=== PATIENT | male | born 1960 | race African-American/Black ===

== ENCOUNTER 2020-02-19 09:55 | Inpatient (IN) | payer OTHER ==
--- NOTE | 2020-02-19 11:31 | BHS.RME ---
Substance Use & Tx History - Substance Use History Alcohol Substance amount: 2- 220z cans Frequency of use: Daily Substance route: Oral Date of Last Use: 02/18/20 - Last Treatment Date of last treatment: 06/16/15 Treatment type: Substance Use Disorder ([facility]LINDA) Where was last treatment: Detox Physical/Psych/Mental Status - Behavior General Behavior: Increased activity (restlessness, agitation) Eye Contact: Normal Other Behaviors: Mannerisms - Cooperativeness Cooperativeness: Cooperative - Thinking Thought Processes: Logical Thought content: Future oriented - Physical Health Problems Is patient presently having any pain?: No Does patient presently have any injuries (include location): No Does patient currently have a fever: No CIWA Nausea/Vomitin Muscle Tremors: 2 Anxiety: 2 Agitation: 2 Paroxysmal Sweats: 2 Orientation: 0-Oriented Tacttile Disturbances: 0-None Auditory Disturbances: 1-Very Mild Visual Disturbances: 1-Very Mild Sensitivity Headache: 2-Mild CIWA-Ar Total Score: 14
--- NOTE | 2020-02-19 12:00 | HP ---
CIWA Score Nausea/Vomitin Muscle Tremors: 2 Anxiety: 2 Agitation: 2 Paroxysmal Sweats: 2 Orientation: 0-Oriented Tacttile Disturbances: 0-None Auditory Disturbances: 1-Very Mild Visual Disturbances: 1-Very Mild Sensitivity Headache: 2-Mild CIWA-Ar Total Score: 14 - Admission Criteria [facility]ASAS Guidelines: Admission for Medically Managed Detox: Requires at least one of the followin. CIWA greater than 12 2. Seizures within the past 24 hours 3. Delirium tremens within the past 24 hours 4. Hallucinations within the past 24 hours 5. Acute intervention needed for co occurring medical disorder 6. Acute intervention needed for co occurring psychiatric disorder 7. Severe withdrawal that cannot be handled at a lower level of care (continued vomiting, continued diarrhea, abnormal vital signs) requiring intravenous medication and/or fluids 8. Admitting History and Physical - Smoking History Smoking history: Never smoked Have you smoked in the past 12 months: No - Alcohol/Substance Use Hx Alcohol Use: Yes Admission ROS S - HPI Chief Complaint: Withdrawal sx Allergies/Adverse Reactions: Allergies Allergy/AdvReac Type Severity Reaction Status Date / Time No Known Allergies Allergy Verified 02/19/20 12:02 History of Present Illness: Patient is a 59 years old man who presents from [facility] where he was observed for a day for intoxication and seizure, patient reports he was given librium while he was under observation. He denies blackouts, patient is homeless Exam Limitations: No Limitations - Ebola screening Have you traveled outside of the country in the last 21 days: No Have you had contact with anyone from an Ebola affected area: No Have you been sick,other than usual withdrawal symptoms: No Do you have a fever: No - Review of Systems Constitutional: Changes in sleep EENT: reports: No Symptoms Reported Respiratory: reports: Productive cough Cardiac: reports: No Symptoms Reported GI: reports: Nausea, Poor Fluid Intake, Abdominal cramping : reports: No Symptoms Reported Musculoskeletal: reports: Muscle Pain, Muscle Weakness Integumentary: reports: Sweating Neuro: reports: Numbness, Seizure, Tremors Endocrine: reports: No Symptoms Reported Hematology: reports: No Symptoms Reported Psychiatric: reports: Anxious, Depressed Other Systems: Reviewed and Negative Patient History - Patient Medical History Hx Anemia: No Hx Asthma: No Hx Chronic Obstructive Pulmonary Disease (COPD): No Hx Cancer: No Hx Cardiac Disorders: No Hx Hypertension: No Hx Seizures: Yes (last episode 2 days ago) Hx Diabetes: No Hx Gastrointestinal Disorders: No Hx Liver Disease: No Hx Genitourinary Disorders: No Hx Sexually Transmitted Disorders: No Hx Renal Disease (ESRD): No Hx Human Immunodeficiency Virus (HIV): No Hx Hepatitis C: No Hx Depression: Yes (and anxiety - never hospitalized) Hx Suicide Attempt: No Hx Bipolar Disorder: No Hx Schizophrenia: No - Patient Surgical History Past Surgical History: No - PPD History Date: 06/18/15 - Smoking Cessation Smoking history: Never smoked Have you smoked in the past 12 months: No Hx Chewing Tobacco Use: No Initiated information on smoking cessation: No Admission Physical Exam [facility] - Physical General Appearance: Yes: Disheveled, Tremorous HEENTM: Yes: Hearing grossly Normal, Normocephalic, Normal Voice Respiratory: Yes: Chest Non-Tender, Lungs Clear, Normal Breath Sounds, No Respiratory Distress, No Accessory Muscle Use Neck: Yes: No masses,lesions,Nodules, Supple Breast: Yes: Breast Exam Deferred Cardiology: Yes: Regular Rhythm, Regular Rate, S1, S2 Abdominal: Yes: Normal Bowel Sounds, Non Tender, Soft Genitourinary: Yes: Within Normal Limits Back: Yes: Normal Inspection Musculoskeletal: Yes: Gait Steady, Muscle Pain, Muscle weakness Extremities: Yes: Tremors Neurological: Yes: Fully Oriented, Alert, Normal Mood/Affect, Normal Response Integumentary: Yes: Normal Color Lymphatic: Yes: Within Normal Limits - Diagnostic (1) Alcohol dependence with uncomplicated withdrawal Current Visit: Yes Status: Acute (2) Seizure disorder Current Visit: Yes Status: Acute Cleared for Admission [facility] - Detox or Rehab [facility] Level of Care: Medically Managed Detox Regimen/Protocol: Librium Claeared for Rehab Admission: No Breathalyzer - Breathalyzer Breathalyzer: 0.076 Urine Drug Screen - Test Device Lot number: [id number] Expiration date: 10/04/21 - Control Is test valid?: Yes - Results Drug screen NEGATIVE: Yes Inpatient Rehab Admission - Rehab Decision to Admit Inpatient rehab admission?: No
[2020-02-19] MEDS ORDERED: MENTHOL/PHENOL 1 EACH UD MM PRN (12:05)
[2020-02-19] MEDS ORDERED: MAGNESIUM HYDROX 2400MG/30ML ORAL SUSPENSION 30 ML CUP PO PRN (12:05)
[2020-02-19] MEDS ORDERED: chlordiazePOXIDE HCL 10 MG CAPSULE PO PRN (12:05)
[2020-02-19] MEDS ORDERED: MAGNESIUM CITRATE 300 ML BOTTLE PO PRN (12:05)
[2020-02-19] MEDS ORDERED: BISMUTH SUBSALICYLATE 524 MG/30 ML UD PO PRN (12:05)
[2020-02-19] MEDS ORDERED: METHOCARBAMOL 500 MG TABLET PO PRN (12:05)
[2020-02-19] MEDS ORDERED: MAG HYDROX/AL HYDROX/SIMETH 30 ML UNIT-DOSE CUP PO PRN (12:05)
[2020-02-19] MEDS ORDERED: ACETAMINOPHEN 325 MG TABLET (FP) PO PRN ×2 (12:05)
[2020-02-19] MEDS ORDERED: ONDANSETRON *ODT* 4 MG TABLET SL ONE (12:05)
[2020-02-19] MEDS ORDERED: hydrOXYzine PAMOATE 25 MG CAPSULE (FP) PO PRN (12:05)
[2020-02-19 12:08] VITALS: BMI 22.5
[2020-02-19] MEDS: chlordiazePOXIDE HCL 25 MG CAPSULE PO SCH ×2 (13:10→21:38)
[2020-02-19] MEDS: MELATONIN 5 MG TABLETS PO SCH (21:38)
[2020-02-19] MEDS: levETIRAcetam 500 MG TABLET (FP) PO SCH (21:38)
[2020-02-19] MEDS: THIAMINE HCL 100 MG TABLET (FP) PO SCH (21:39)
[2020-02-19] MEDS ORDERED: levETIRAcetam 500 MG TABLET (FP) PO SCH (22:00)
[2020-02-20] MEDS: chlordiazePOXIDE HCL 25 MG CAPSULE PO SCH (06:51)
--- NOTE | 2020-02-20 10:08 | CONSULT ---
[facility] Psychiatric Consult - Data Date of interview: 02/20/20 Admission source: [facility] Identifying data: Mr Nguyen is a 59 years old Black male, father of 3 sons, unemployedreceiving public assistance, homeless seeking detox treatment for alcohol Substance Abuse History: Reports history of alcohol use. Refer to addiction counselor's summary for further information Medical History: Significant for alcohol related for seizure. Psychiatric History: Denies history of previous psychiatric treatment, hospitalization or suicidal attempt. However, reports feeling depressed Physical/Sexual Abuse/Trauma History: Denies history of abuse as a child or DV relationship as an adult Mental Status Exam - Mental Status Exam Alert and Oriented to: Time, Place, Person Cognitive Function: Fair Patient Appearance: Disheveled Mood: Depressed Affect: Appropriate Patient Behavior: Cooperative Speech Pattern: Clear Voice Loudness: Normal Thought Process: Intact, Goal Oriented Thought Disorder: Not Present Hallucinations: Denies Suicidal Ideation: Denies Homicidal Ideation: Denies Insight/Judgement: Poor Sleep: Well Appetite: Fair Muscle strength/Tone: Normal Gait/Station: Normal Psychiatric Findings - Problem List ([place] 1, 2,3) (1) Alcohol-induced mood disorder Current Visit: Yes Status: Acute (2) Alcohol dependence with uncomplicated withdrawal Current Visit: No Status: Acute (3) Alcohol related seizure Current Visit: Yes Status: Resolved - Initial Treatment Plan Initial Treatment Plan: Continue inpatient detoxification
[2020-02-20 10:50] LABS: HEMOGLOBIN 13.9 GM/dL (11.7-16.9)
[2020-02-20 10:52] LABS: HEMATOCRIT 42.6 % (35.4-49); MCH 30.7 pg (25.7-33.7); MCHC 32.6 g/dl (32.0-35.9); MEAN CELL VOLUME 94.1 fl (80-96); MEAN PLT VOLUME 9.5 fl (7.5-11.1); PLATELET COUNT 119 K/MM3 (134-434); RBC 4.53 M/mm3 (4.00-5.60); RDW 15.8 % (11.9-15.9); WHITE BLOOD COUNT 3.7 K/mm3 (4.0-10.0)
[2020-02-20 10:54] LABS: POTASSIUM 3.9 mmol/L (3.5-5.1)
[2020-02-20] MEDS: levETIRAcetam 500 MG TABLET (FP) PO SCH ×2 (10:57→22:40)
[2020-02-20] MEDS: PRENATAL VITAMINS W/ FOLIC ACID TABLET (FP) PO SCH (10:57)
[2020-02-20 11:05] LABS: ALBUMIN 3.4 g/dl (3.4-5.0); BILIRUBIN,TOTAL 1.2 mg/dL (0.2-1); CALCIUM 9.3 mg/dL (8.5-10.1); TOT PROT 7.3 g/dl (6.4-8.2)
--- NOTE | 2020-02-20 12:22 | PN ---
S CIWA - CIWA Score Nausea/Vomitin-No Nausea/No Vomiting Muscle Tremors: 2 Anxiety: 3 Agitation: 0-Normal Activity Paroxysmal Sweats: 3 Orientation: 0-Oriented Tacttile Disturbances: 0-None Auditory Disturbances: 0-None Visual Disturbances: 0-None Headache: 2-Mild CIWA-Ar Total Score: 10 BHS Progress Note (SOAP) Subjective: c/o sweats, anxiety, and headache. Objective: 02/20/20 12:03 Vital Signs 02/20/20 02/20/20 02/20/20 06:24 08:44 08:45 Temperature 98.2 F 97.3 F L Pulse Rate 67 71 Respiratory 18 18 Rate Blood Pressure 129/80 145/101 H 132/90 O2 Sat by Pulse 96 Oximetry (%) Laboratory Last Values WBC 3.7 K/mm3 (4.0-10.0) L 02/20/20 07:45 RBC 4.53 M/mm3 (4.00-5.60) 02/20/20 07:45 Hgb 13.9 GM/dL (11.7-16.9) 02/20/20 07:45 Hct 42.6 % (35.4-49) 02/20/20 07:45 MCV 94.1 fl (80-96) 02/20/20 07:45 MCH 30.7 pg (25.7-33.7) 02/20/20 07:45 MCHC 32.6 g/dl (32.0-35.9) 02/20/20 07:45 RDW 15.8 % (11.9-15.9) D 02/20/20 07:45 Plt Count 119 K/MM3 (134-434) L 02/20/20 07:45 MPV 9.5 fl (7.5-11.1) 02/20/20 07:45 Sodium 135 mmol/L (136-145) L 02/20/20 07:45 Potassium 3.9 mmol/L (3.5-5.1) 02/20/20 07:45 Chloride 96 mmol/L (98-107) L 02/20/20 07:45 Carbon Dioxide 31 mmol/L (21-32) 02/20/20 07:45 Anion Gap 8 MMOL/L (8-16) 02/20/20 07:45 BUN 6.0 mg/dL (7-18) L 02/20/20 07:45 Creatinine 1.0 mg/dL (0.55-1.3) 02/20/20 07:45 Est GFR (CKD-EPI)AfAm 95.73 02/20/20 07:45 Est GFR (CKD-EPI)NonAf 82.60 02/20/20 07:45 Random Glucose 103 mg/dL (74-106) 02/20/20 07:45 Calcium 9.3 mg/dL (8.5-10.1) 02/20/20 07:45 Total Bilirubin 1.2 mg/dL (0.2-1) H 02/20/20 07:45 AST 118 U/L (15-37) H 02/20/20 07:45 ALT 121 U/L (13-61) H 02/20/20 07:45 Alkaline Phosphatase 95 U/L (45-117) 02/20/20 07:45 Total Protein 7.3 g/dl (6.4-8.2) 02/20/20 07:45 Albumin 3.4 g/dl (3.4-5.0) 02/20/20 07:45 Syphilis Serology Non-reactive (NONREACTIVE) 02/20/20 07:45 Labs noted with elevated AST/ALT. Assessment: 02/20/20 12:22 AOX3 and in no acute respiratory. Full ROM, ambulating in the unit. Withdrawal symptoms. Elevated liver enzymes. 02/20/20 12:24 Plan: continue detox. Change Librium to Ativan protocol.
[2020-02-20] MEDS: LORazepam 1 MG TABLET PO PRN ×2 (13:23→17:51)
[2020-02-20] MEDS ORDERED: LORazepam 2 MG TABLET PO SCH (17:00)
[2020-02-20] MEDS ORDERED: LORazepam 1 MG TABLET PO SCH (17:44)
[2020-02-20] MEDS: LORazepam 1 MG TABLET PO SCH ×2 (17:52→22:39)
[2020-02-20] MEDS: THIAMINE HCL 100 MG TABLET (FP) PO SCH (22:40)
[2020-02-20] MEDS: MELATONIN 5 MG TABLETS PO SCH (22:41)
[2020-02-21] MEDS ORDERED: chlordiazePOXIDE 5 MG CAPSULE PO SCH (05:00)
[2020-02-21] MEDS: LORazepam 1 MG TABLET PO SCH ×4 (07:36→22:34)
[2020-02-21] MEDS: levETIRAcetam 500 MG TABLET (FP) PO SCH ×2 (10:31→22:34)
[2020-02-21] MEDS: PRENATAL VITAMINS W/ FOLIC ACID TABLET (FP) PO SCH (10:31)
--- NOTE | 2020-02-21 12:50 | PN ---
S CIWA - CIWA Score Nausea/Vomitin-No Nausea/No Vomiting Muscle Tremors: None Anxiety: 2 Agitation: 2 Paroxysmal Sweats: 2 Orientation: 0-Oriented Tacttile Disturbances: 0-None Auditory Disturbances: 0-None Visual Disturbances: 0-None Headache: 2-Mild CIWA-Ar Total Score: 8 BHS Progress Note (SOAP) Subjective: c/o irritability, anxiety, headache, and sweats. Objective: 02/21/20 12:50 Vital Signs 02/21/20 02/21/20 07:44 09:20 Temperature 98.1 F 98.2 F Pulse Rate 63 72 Respiratory 18 16 Rate Blood Pressure 144/98 115/70 O2 Sat by Pulse 98 99 Oximetry (%) Assessment: 02/21/20 12:50 AOX3, in no acute respiratory distress. Full ROM, ambulating in the unit. Withdrawal symptoms. Plan: continue detox.
[2020-02-21] MEDS: THIAMINE HCL 100 MG TABLET (FP) PO SCH (22:34)
[2020-02-21] MEDS: MELATONIN 5 MG TABLETS PO SCH (22:34)
[2020-02-22] MEDS ORDERED: chlordiazePOXIDE HCL 10 MG CAPSULE PO PRN
[2020-02-22] MEDS ORDERED: chlordiazePOXIDE HCL 10 MG CAPSULE PO SCH (05:00)
[2020-02-22] MEDS: LORazepam 0.5 MG TABLET PO SCH ×4 (06:51→22:21)
[2020-02-22] MEDS: PRENATAL VITAMINS W/ FOLIC ACID TABLET (FP) PO SCH (10:34)
[2020-02-22] MEDS: levETIRAcetam 500 MG TABLET (FP) PO SCH ×2 (10:34→22:21)
[2020-02-22] MEDS: IBUPROFEN 400 MG TABLET (FP) PO PRN ×2 (10:36→19:57)
--- NOTE | 2020-02-22 13:01 | PN ---
S CIWA - CIWA Score Nausea/Vomitin-No Nausea/No Vomiting Muscle Tremors: None Anxiety: 2 Agitation: 0-Normal Activity Paroxysmal Sweats: 2 Orientation: 0-Oriented Tacttile Disturbances: 0-None Auditory Disturbances: 0-None Visual Disturbances: 0-None Headache: 1-Very Mild CIWA-Ar Total Score: 5 BHS Progress Note (SOAP) Subjective: c/o mild withdrawal symptoms. Objective: 02/22/20 13:00 Vital Signs 02/22/20 02/22/20 06:19 08:43 Temperature 97.7 F 98.2 F Pulse Rate 64 67 Respiratory 18 18 Rate Blood Pressure 128/74 118/71 O2 Sat by Pulse 97 Oximetry (%) Assessment: 02/22/20 13:00 AOX3, in no acute respiratory distress. Full ROM, ambulating in the unit. Mild Withdrawal symptoms. For d/c tomorrow. Plan: continue detox. D/C in AM.
[2020-02-22] MEDS: THIAMINE HCL 100 MG TABLET (FP) PO SCH (22:21)
[2020-02-22] MEDS: MELATONIN 5 MG TABLETS PO SCH (22:21)
[2020-02-23] MEDS ORDERED: LORazepam 0.5 MG TABLET PO PRN
[2020-02-23] MEDS ORDERED: chlordiazePOXIDE HCL 10 MG CAPSULE PO ONE (05:00)
[2020-02-23] MEDS ORDERED: LORazepam 0.5 MG TABLET PO ONE (05:00)
[2020-02-23 08:15] VITALS: BP 148/81; PULSE 62; TEMP 97.9
--- NOTE | 2020-02-23 12:01 | DS ---
[facility] Detox Discharge Summary Admission Date: 02/19/20 Discharge Date: 02/23/20 - History Present History: Alcohol Dependence Additional Comments: Pt is medically cleared and discharged today. Pt completed the detox protocol. Pt is encouraged to follow-up with an outpatient CD program as discussed with his counselor and also to follow-up with his pmd which he verbalized understanding. Pt is AOX3, in no acute respiratory distress, Full ROM, and ambulatory. Pertinent Past History: h/o seizure and alcohol use disorder. - Physical Exam Results Vital Signs: Vital Signs Temperature 97.9 F 02/23/20 05:08 Pulse Rate 62 02/23/20 05:08 Respiratory Rate 18 02/23/20 05:08 Blood Pressure 148/81 02/23/20 05:08 O2 Sat by Pulse Oximetry (%) 96 02/23/20 05:08 Vital Signs 02/23/20 05:08 Temperature 97.9 F Pulse Rate 62 Respiratory 18 Rate Blood Pressure 148/81 O2 Sat by Pulse 96 Oximetry (%) Laboratory Last Values WBC 3.7 K/mm3 (4.0-10.0) L 02/20/20 07:45 RBC 4.53 M/mm3 (4.00-5.60) 02/20/20 07:45 Hgb 13.9 GM/dL (11.7-16.9) 02/20/20 07:45 Hct 42.6 % (35.4-49) 02/20/20 07:45 MCV 94.1 fl (80-96) 02/20/20 07:45 MCH 30.7 pg (25.7-33.7) 02/20/20 07:45 MCHC 32.6 g/dl (32.0-35.9) 02/20/20 07:45 RDW 15.8 % (11.9-15.9) D 02/20/20 07:45 Plt Count 119 K/MM3 (134-434) L 02/20/20 07:45 MPV 9.5 fl (7.5-11.1) 02/20/20 07:45 Sodium 135 mmol/L (136-145) L 02/20/20 07:45 Potassium 3.9 mmol/L (3.5-5.1) 02/20/20 07:45 Chloride 96 mmol/L (98-107) L 02/20/20 07:45 Carbon Dioxide 31 mmol/L (21-32) 02/20/20 07:45 Anion Gap 8 MMOL/L (8-16) 02/20/20 07:45 BUN 6.0 mg/dL (7-18) L 02/20/20 07:45 Creatinine 1.0 mg/dL (0.55-1.3) 02/20/20 07:45 Est GFR (CKD-EPI)AfAm 95.73 02/20/20 07:45 Est GFR (CKD-EPI)NonAf 82.60 02/20/20 07:45 Random Glucose 103 mg/dL (74-106) 02/20/20 07:45 Calcium 9.3 mg/dL (8.5-10.1) 02/20/20 07:45 Total Bilirubin 1.2 mg/dL (0.2-1) H 02/20/20 07:45 AST 118 U/L (15-37) H 02/20/20 07:45 ALT 121 U/L (13-61) H 02/20/20 07:45 Alkaline Phosphatase 95 U/L (45-117) 02/20/20 07:45 Total Protein 7.3 g/dl (6.4-8.2) 02/20/20 07:45 Albumin 3.4 g/dl (3.4-5.0) 02/20/20 07:45 Syphilis Serology Non-reactive (NONREACTIVE) 02/20/20 07:45 COVID-19 (MARIE) Not detected (Not Detected) 02/19/20 12:15 Labs noted. Pertinent Admission Physical Exam Findings: withdrawal symptoms. - Treatment Hospital Course: Detox Protocol Followed, Detoxed Safely, Responded well, Discharged Condition Good - Medication Discharge Medications: Ambulatory Orders levETIRAcetam [Keppra -] 750 mg PO BID 14 Days #28 each 02/23/20 - Diagnosis (1) Alcohol dependence Status: Chronic Qualifiers: Substance use status: in withdrawal Complication of substance-induced condition: uncomplicated Qualified Code(s): F10.230 - Alcohol dependence with withdrawal, uncomplicated (2) Alcohol dependence with uncomplicated withdrawal Status: Acute (3) Seizure disorder Status: Chronic - AMA Did Patient Leave Against Medical Advice: No
== END 2020-02-23 10:11 | disposition home or self-care (01) | DRG 775 ==
LOC: YASAS 09:55 → Y6N 11:59
PROVIDERS: ADMIT Allergy & Immunology; ATTEND Allergy & Immunology
PROC: HZ2ZZZZ Detoxification Services for Substance Abuse Treatment (ICD-10-PCS; principal; 2020-02-19)
DX: F10.230 Alcohol dependence with withdrawal, uncomplicated (principal); F10.24 Alcohol dependence with alcohol-induced mood disorder; F41.9 Anxiety disorder, unspecified; F32.9 Major depressive disorder, single episode, unspecified; G40.909 Epilepsy, unspecified, not intractable, without status epilepticus; R74.0 Nonspecific elevation of levels of transaminase and lactic acid dehydrogenase [LDH]; Z56.0 Unemployment, unspecified; Z59.0 Homelessness
CPT/HCPCS: 36415; 80053; 85027; 86780; U0003

== ENCOUNTER 2024-11-08 12:49 | Inpatient (IN) | payer OTHER ==
[2024-11-08 13:33] VITALS: BMI 21.4
[2024-11-08] MEDS ORDERED: BENZOCAINE/MENTHOL (CHLORASEPTIC ) LOZENGE MM PRN (14:18)
[2024-11-08] MEDS ORDERED: IBUPROFEN 400 MG TABLET (FP) PO PRN (14:18)
[2024-11-08] MEDS ORDERED: BISMUTH SUBSALICYLATE 262 MG/15 ML BTL PO PRN (14:18)
[2024-11-08] MEDS ORDERED: guaiFENesin 600 MG TABLET.ER (FP) PO PRN (14:18)
[2024-11-08] MEDS ORDERED: NALOXONE (NARCAN) HCL 4 MG/0.1 ML SPRAY NS PRN (14:18)
[2024-11-08] MEDS ORDERED: ONDANSETRON *ODT* 4 MG TABLET SL PRN (14:18)
[2024-11-08] MEDS ORDERED: METHOCARBAMOL 500 MG TABLET PO PRN (14:18)
[2024-11-08] MEDS ORDERED: POLYETHYLENE GLYCOL (HEALTHYLAX) 3350 17 GM PACKET PO PRN (14:18)
[2024-11-08] MEDS ORDERED: MAG HYDROX/AL HYDROX/SIMETH 30 ML UNIT-DOSE CUP PO PRN (14:18)
[2024-11-08] MEDS ORDERED: ACETAMINOPHEN 325 MG TABLET (FP) PO PRN (14:18)
[2024-11-08] MEDS ORDERED: DICYCLOMINE HCL 10 MG CAPSULE PO PRN (14:18)
[2024-11-08] MEDS ORDERED: BENZONATATE 200 MG CAPSULE PO PRN (14:18)
[2024-11-08] MEDS ORDERED: LOPERAMIDE HCL 2 MG CAPSULE PO PRN (14:18)
[2024-11-08] MEDS ORDERED: IBUPROFEN 600 MG TABLET (FP) PO PRN (14:18)
[2024-11-08] MEDS ORDERED: MAGNESIUM HYDROX 2400MG/30ML ORAL SUSPENSION 30 ML CUP PO PRN (14:18)
[2024-11-08] MEDS ORDERED: chlordiazePOXIDE HCL 25 MG CAPSULE PO PRN (14:21)
[2024-11-08] MEDS ORDERED: ALBUTEROL SO4 HFA INHALER IH PRN (15:26)
[2024-11-08] MEDS: chlordiazePOXIDE HCL 25 MG CAPSULE PO SCH (17:37)
[2024-11-08] MEDS: levETIRAcetam 250 MG TABLET PO SCH (22:15)
[2024-11-08] MEDS: LACOSAMIDE 100 MG TABLET PO SCH (22:15)
[2024-11-08] MEDS: THIAMINE 100 MG TABLET PO SCH (22:15)
[2024-11-08] MEDS: MELATONIN 5 MG TABLETS PO SCH (22:29)
[2024-11-09] MEDS: chlordiazePOXIDE HCL 25 MG CAPSULE PO SCH (05:45)
[2024-11-09] MEDS: NALTREXONE HCL 50 MG TABLET PO ONE (08:35)
[2024-11-09] MEDS: PRENATAL VITAMINS W/ FOLIC ACID TABLET (FP) PO SCH (10:22)
[2024-11-09 13:37] LABS: POTASSIUM 4.8 mmol/L (3.5-5.1)
[2024-11-09 13:39] LABS: CALCIUM 9.5 mg/dL (8.5-10.1)
[2024-11-09 13:40] LABS: ALBUMIN 3.4 g/dl (3.4-5.0); BLOOD UREA NITROGEN 10.3 mg/dL (7-18)
[2024-11-09 13:43] LABS: CREATININE 0.9 mg/dL (0.55-1.3)
[2024-11-09 13:44] LABS: BILIRUBIN,TOTAL 0.9 mg/dL (0.2-1); TOT PROT 7.4 g/dl (6.4-8.2)
[2024-11-10] MEDS: chlordiazePOXIDE HCL 10 MG CAPSULE PO SCH (05:41)
[2024-11-10] MEDS ORDERED: NALTREXONE HCL 50 MG TABLET PO SCH (10:00)
[2024-11-10 11:25] LABS: HEMATOCRIT 44.2 % (40.1-51.0); HEMOGLOBIN 14.5 g/dL (13.7-17.5); MCHC 32.8 g/dl (32.3-36.5); MEAN CELL VOLUME 99.5 fl (79.0-92.2); MEAN PLT VOLUME 10.4 fl (9.4-12.4); PLATELET COUNT 144 x10^3/uL (163-337); RDW 11.9 % (12.2-16.4)
[2024-11-11] MEDS ORDERED: chlordiazePOXIDE HCL 10 MG CAPSULE PO PRN
[2024-11-11] MEDS: chlordiazePOXIDE HCL 10 MG CAPSULE PO SCH (05:48)
[2024-11-11 09:07] VITALS: RESP 16
[2024-11-11 13:32] VITALS: BP 115/60; PULSE 74; TEMP 97.6
[2024-11-12] MEDS ORDERED: chlordiazePOXIDE HCL 10 MG CAPSULE PO ONE (05:00)
== END 2024-11-11 12:55 | disposition other institution (70) | DRG 775 ==
LOC: YASAS 12:49 → Y6N 14:30
PROVIDERS: ADMIT Allergy & Immunology; ATTEND Allergy & Immunology
PROC: HZ2ZZZZ Detoxification Services for Substance Abuse Treatment (ICD-10-PCS; principal; 2024-11-08)
DX: F10.230 Alcohol dependence with withdrawal, uncomplicated (principal); F12.20 Cannabis dependence, uncomplicated; F10.282 Alcohol dependence with alcohol-induced sleep disorder; F10.24 Alcohol dependence with alcohol-induced mood disorder; G40.909 Epilepsy, unspecified, not intractable, without status epilepticus; G47.00 Insomnia, unspecified; J45.909 Unspecified asthma, uncomplicated; R29.6 Repeated falls; R26.89 Other abnormalities of gait and mobility; Z91.410 Personal history of adult physical and sexual abuse; Z63.0 Problems in relationship with spouse or partner
CPT/HCPCS: 36415; 80053; 80305; 80307; 85027; 86780; 87811; 93005; 93010